=== PATIENT | male | born 1980 | race Caucasian/White ===

== ENCOUNTER 2018-09-26 06:14 | Day surgery (SDC) | payer OTHER ==
[~2018-09-26] VITALS: Ht 175.3 cm; Wt 104.5 kg
[2018-09-26] MEDS ORDERED: LIDOCAINE 4% 50 ML SOLUTION TP ONE (06:15)
[2018-09-26] MEDS ORDERED: LIDOCAINE 2% 5 ML JELLY TP ONE (06:15)
[2018-09-26] MEDS ORDERED: ALBUTEROL SULFATE 2.5 MG/0.5 ML NEB SOLUTION NEB ONE (06:15)
[2018-09-26] MEDS ORDERED: BENZOCAINE 20% 50 MCG/SPRAY 57 GM TP ONE (06:15)
[2018-09-26] MEDS ORDERED: SODIUM CHLORIDE 0.9% 1,000 ML IV ONE ×2 (06:30→07:25)
[2018-09-26] MEDS ORDERED: FentaNYL CITRATE-PF 100 MCG/2 ML VIAL ONE (07:53)
[2018-09-26] MEDS ORDERED: MIDAZOLAM HCL 2 MG/2 ML VIAL ONE (07:53)
[2018-09-26] MEDS ORDERED: MONT10TA21 PO (08:23)
[2018-09-26] MEDS ORDERED: PSEU30TA31 PO (08:23)
[2018-09-26] MEDS ORDERED: TEST75PE9 SQ (08:23)
[2018-09-26] MEDS ORDERED: ALBU8.5H8 IH (08:23)
[2018-09-26] MEDS ORDERED: PRED10 PO (08:23)
[2018-09-26] MEDS ORDERED: TIOT4MIS2 PUFF (08:23)
[2018-09-26] MEDS ORDERED: BECL10.62 IH (08:23)
[2018-09-26] MEDS ORDERED: IPRA3AMP24 NEB (08:23)
[2018-09-26] MEDS ORDERED: SIME80 PO (08:33)
[2018-09-26] MEDS ORDERED: DULO20CA30 PO (08:33)
[2018-09-26] MEDS ORDERED: PANT40TA25 PO (08:33)
[2018-09-26] MEDS ORDERED: FLUT16H NASAL (08:33)
[2018-09-26] MEDS ORDERED: METO25 PO (08:33)
[2018-09-26] MEDS ORDERED: SERT100T12 PO (08:33)
[2018-09-26] MEDS ORDERED: LORA10TA7 PO (08:33)
[2018-09-26] MEDS ORDERED: DILT60SR PO (08:33)
[2018-09-26] MEDS ORDERED: MULT-1203 PO (08:33)
[2018-09-26] MEDS ORDERED: IBUP-2071 PO (08:33)
[2018-09-26] MEDS ORDERED: ZOLP5 PO (08:33)
[2018-09-26] MEDS ORDERED: ASCO500 PO (08:33)
[2018-09-26] MEDS ORDERED: OMEG-135 PO (08:33)
[2018-09-26] MEDS ORDERED: HYDR-4061 PO (08:33)
[2018-09-26] MEDS ORDERED: AZEL137S8 NS (08:33)
[2018-09-26] MEDS ORDERED: MethylPREDNISolone SOD SUCC 125 MG/2 ML VIAL IVP ONE (08:45)
[2018-09-26] MEDS ORDERED: MethylPREDNISolone SOD SUCC 125 MG/2 ML VIAL ONE (09:18)
[2018-09-26] MEDS ORDERED: OXYGEN THERAPY IH SCH (20:00)
== END 2018-09-26 10:50 | disposition home or self-care (01) ==
LOC: SURGERY 06:14
PROVIDERS: ATTEND Internal Medicine Critical Care Medicine
DX: J38.4 Edema of larynx (principal); B37.0 Candidal stomatitis; I10 Essential (primary) hypertension; J45.909 Unspecified asthma, uncomplicated
CPT/HCPCS: 31623; 31624; 71045; 87015; 87070; 87101; 87205; 87206; 87220; 88108; 88312; 93005; J2250; J2930; J3010; J7030